=== PATIENT | male | born 1955 | race African-American/Black ===

== ENCOUNTER 2021-05-06 06:01 | Observation (INO) | payer MEDICARE, OTHER, SELFPAY ==
[2021-05-06] MEDS ORDERED: Ondansetron ODT 4 MG TAB PO PRN (09:34)
[2021-05-06] MEDS ORDERED: Acetaminophen 325 MG TAB PO PRN (09:34)
[2021-05-06] MEDS ORDERED: Nicotine 14 MG PATCH TD PRN (09:34)
[2021-05-06] MEDS ORDERED: Nitroglycerin 0.4 MG TAB (25 Tab Bottle) SL PRN (09:35)
[2021-05-06 09:40] LABS: SARS-CoV-2 NAA Rapid Test Not Detected (NotDetected)
[2021-05-06] MEDS ORDERED: Iopamidol-370 76% 500 ML 1 ML ONE (10:15)
[2021-05-06 10:18] LABS: Hemoglobin A1c 5.1 % (4.0-6.0)
[2021-05-06 10:21] LABS: Troponin I Less than 0.010 ng/mL (< 0.028)
[2021-05-06] MEDS ORDERED: Lidocaine Viscous Sol 2% 15 ml UD Cup ONE (10:27)
[2021-05-06] MEDS ORDERED: Mag-Al 1200 mg/1200 mg/30 ML UDCUP ONE (10:27)
[2021-05-06] MEDS ORDERED: Albuterol Sulfate 2.5 mg/3 ml Neb NEB PRN (10:29)
[2021-05-06] MEDS ORDERED: Morphine 4 MG/ML VIAL ONE (11:41)
[2021-05-06] MEDS: Morphine 4 MG/ML VIAL SLOW IVP PRN ×3 (11:44→20:44)
[2021-05-06] MEDS ORDERED: Nitroglycerin 2% Ointment 1 INCH/1 GM Packet ONE (13:41)
[2021-05-06] MEDS: Nitroglycerin 2% Ointment 1 INCH/1 GM Packet TOP SCH ×2 (13:48→21:35)
[2021-05-06 14:19] LABS: Troponin I Less than 0.010 ng/mL (< 0.028)
[2021-05-06 16:52] VITALS: BMI 19.3
[2021-05-06] MEDS ORDERED: Lorazepam 1 MG TAB PO PRN (17:00)
[2021-05-06] MEDS ORDERED: Lorazepam 2 MG/ML VIAL IM PRN (17:00)
[2021-05-06] MEDS: Lorazepam 1 MG TAB PO SCH (17:31)
[2021-05-06] MEDS ORDERED: Tamsulosin HCl 0.4 MG CAP PO SCH (21:00)
[2021-05-06] MEDS ORDERED: Enoxaparin Sodium 80 MG/0.8 ML SYRINGE SC SCH (21:00)
[2021-05-07] MEDS: Lorazepam 1 MG TAB PO SCH ×3 (00:28→11:20)
[2021-05-07 04:32] LABS: #Basophils 0.1 thou/uL (0.0-0.2); #Eosinphils 0.1 thou/uL (0.0-0.7); #Lymphocytes 1.5 thou/uL (1.20-3.40); #Neutrophils 7.7 thou/uL (1.40-6.50); %Basophils 0.5 % (0.0-1.0); %Eosinophils 1.3 % (0.0-10.0); %Lymphocytes 14.6 % (21.0-51.0); %Monocytes 9.5 % (0.0-10.0); %Neutrophils 74.2 % (42.0-75.0); Hemoglobin 10.9 g/dL (14.0-18.0); Mean Corpuscular HGB CONC 33.8 g/dL (32.0-36.0); Mean Corpuscular Hemoglobin 28.8 pg (27.0-31.0); Mean Corpuscular Volume 85.3 fL (78.0-98.0); Mean Platelet Volume 8.2 fL (7.4-10.4); Platelet Count 314 thou/uL (130-400); Red Blood Cell (RBC) Count 3.77 mill/uL (4.70-6.10); White Blood Cell (WBC) Count 10.4 thou/uL (4.8-10.8)
[2021-05-07 04:53] LABS: Anion Gap 12 mmol/L (10-20); BUN (Urea Nitrogen) 9 mg/dL (8.4-25.7); Calc. Creatinine Clearance 102 mL/min (70-130); Calcium 8.7 mg/dL (7.8-10.44); Carbon Dioxide 25 mmol/L (23-31); Cardiac Risk 2.6 (Less than 4.5); Chloride 102 mmol/L (98-107); Cholesterol 127 mg/dl (< 200 Desired); Glucose 120 mg/dL (80-115); HDL Cholesterol 49 mg/dL (>60 Neg Risk); LDL Cholesterol, Calculated 63 mg/dL; Magnesium 2.2 mg/dL (1.6-2.6); Potassium 3.5 mmol/L (3.5-5.1); Sodium 135 mmol/L (136-145); Triglycerides 73 mg/dL (Less than 150)
[2021-05-07] MEDS: Nitroglycerin 2% Ointment 1 INCH/1 GM Packet TOP SCH ×2 (06:07→15:54)
[2021-05-07] MEDS ORDERED: Aspirin Chewable 81 MG TAB PO SCH (09:00)
[2021-05-07] MEDS ORDERED: Enoxaparin Sodium 40 MG/0.4 ML SYRINGE SC SCH (09:00)
[2021-05-07] MEDS ORDERED: Regadenoson 0.4 MG/5 ML SYRINGE ONE (12:53)
[2021-05-07 15:55] VITALS: BP 134/72; TEMP 98.5
[2021-05-07] MEDS ORDERED: Lorazepam 1 MG TAB PO PRN (17:00)
[2021-05-07] MEDS ORDERED: Lorazepam 1 MG TAB PO SCH (18:00)
[2021-05-08] MEDS ORDERED: Lorazepam 1 MG TAB PO PRN (17:00)
[2021-05-08] MEDS ORDERED: Lorazepam 0.5 MG TAB PO SCH (18:00)
[2021-05-09] MEDS ORDERED: Lorazepam 0.5 MG TAB PO PRN (17:00)
== END 2021-05-07 16:05 | disposition home or self-care (01) ==
LOC: ERS 06:01 → ERHOLD 06:55 → 2NO 14:06
PROVIDERS: ADMIT Internal Medicine; ATTEND Internal Medicine
DX: R07.9 Chest pain, unspecified (principal); I10 Essential (primary) hypertension; N40.0 Benign prostatic hyperplasia without lower urinary tract symptoms; J44.9 Chronic obstructive pulmonary disease, unspecified; M19.90 Unspecified osteoarthritis, unspecified site; F17.210 Nicotine dependence, cigarettes, uncomplicated; Z79.1 Long term (current) use of non-steroidal anti-inflammatories (NSAID); Z79.899 Other long term (current) drug therapy; Z20.822 Contact with and (suspected) exposure to COVID-19
CPT/HCPCS: 36415; 71275; 78452; 80048; 80061; 83036; 83735; 84443; 85025; 85379; 93005; 93017; 96372; 96374; 96376; A9500; G0378; J1650; J2270; J2785; Q9967; U0002